=== PATIENT | female | born 1990 | race African-American/Black ===

== ENCOUNTER 2021-10-30 05:44 | Emergency (ER) | payer MEDICAID ==
[~2021-10-30] VITALS: Ht 157.5 cm; Wt 92.0 kg
[2021-10-30 05:45] VITALS: BP 128/75
[2021-10-30] MEDS ORDERED: LIDOCAINE 2% 5 ML JELLY TP ONE (06:15)
== END 2021-10-30 06:59 | disposition home or self-care (01) ==
LOC: EMS 05:45
DX: T16.2XXA Foreign body in left ear, initial encounter (principal); X58.XXXA Exposure to other specified factors, initial encounter; Y93.89 Activity, other specified; Y92.89 Other specified places as the place of occurrence of the external cause; Y99.8 Other external cause status
CPT/HCPCS: 69200; 99284; Z7502; Z7610

== ENCOUNTER 2025-08-12 05:03 | Emergency (ER) | payer MEDICAID ==
[~2025-08-12] VITALS: Ht 157.5 cm; Wt 88.8 kg
[2025-08-12] MEDS ORDERED: AMOX500C2 PO (06:22)
[2025-08-12 06:23] VITALS: BP 121/67; PULSE 77; RESP 16; TEMP 98.405312; O2SAT 100
== END 2025-08-12 06:28 | disposition home or self-care (01) ==
LOC: EMS 05:05
DX: H66.91 Otitis media, unspecified, right ear (principal); Z90.710 Acquired absence of both cervix and uterus; Z98.890 Other specified postprocedural states
CPT/HCPCS: 99283; Z7502

== ENCOUNTER 2025-08-15 18:19 | Emergency (ER) | payer MEDICAID ==
[~2025-08-15] VITALS: Ht 157.5 cm; Wt 88.6 kg
[~2025-08-15 18:19] MED LIST: AMOX500C2 PO
[2025-08-15 18:29] VITALS: BP 132/77; PULSE 71; RESP 18; TEMP 98.4; O2SAT 100
[2025-08-15] MEDS ORDERED: AMOX-457 PO (19:35)
== END 2025-08-15 20:11 | disposition home or self-care (01) ==
LOC: EMS 19:49
DX: H66.91 Otitis media, unspecified, right ear (principal); Z98.890 Other specified postprocedural states; Z79.899 Other long term (current) drug therapy; Z90.710 Acquired absence of both cervix and uterus
CPT/HCPCS: 99283; Z7502